=== PATIENT | female | born 1950 | race Caucasian/White ===

== ENCOUNTER → 2016-07-14 | Outpatient (CLI) | payer MEDICARE ==
[~2016-07-14] MED LIST: 1-ME1LIQ PO; AMLO10TA2 PO; BENA20 PO; BENA20TA PO; COLA100C3 PO; ESTR42.5V VAGINAL; FERR1TAB7 PO; FERR65TA PO; METO50CR PO; METO50TA11 PO; PROP50TA2; PROP50TA2 PO
[2016-07-14 12:19] LABS: AUTOMATED NEUTROPHIL # 4.5 TH/MM3 (1.8-7.7); BASOPHIL % 0.6 % (0.0-2.0); EOSINOPHIL # 0.1 TH/MM3 (0-0.4); EOSINOPHIL % 1.2 % (0.0-4.0); HEMATOCRIT 44.6 % (35.0-46.0); HEMO FLAGS DIFF FINAL; LYMPHOCYTE # 1.4 TH/MM3 (1.0-4.8); MEAN CELL VOLUME 88.7 FL (80.0-100.0); MEAN CORPUSCULAR HEMOGLOBIN 29.8 PG (27.0-34.0); MEAN CORPUSCULAR HGB CONC 33.6 % (32.0-36.0); MONO % 8.2 % (0.0-8.0); PLATELET COUNT 228 TH/MM3 (150-450); RED BLOOD COUNT 5.03 MIL/MM3 (4.00-5.30); RED CELL DISTRIBUTION WIDTH 13.8 % (11.6-17.2); WHITE BLOOD COUNT 6.6 TH/MM3 (4.0-11.0)
[2016-07-14 13:05] LABS: ALKALINE PHOSPHATASE 92 U/L (45-117); ALT (GPT) 31 U/L (10-53); ANION GAP 5 MEQ/L (5-15); AST (GOT) 22 U/L (15-37); BICARBONATE 31.6 MEQ/L (21.0-32.0); BLOOD UREA NITROGEN 23 MG/DL (7-18); CHLORIDE 105 MEQ/L (98-107); GLOMERULAR FILTRATION RATE 76 ML/MIN (>89); GLUCOSE,FASTING 95 MG/DL (74-99); POTASSIUM 4.6 MEQ/L (3.5-5.1); SODIUM (NA) 142 MEQ/L (136-145); TOTAL BILIRUBIN ADULT 0.3 MG/DL (0.2-1.0)
[2016-07-14 14:21] LABS: BLOOD, URINE NEG (NEG); GLUCOSE,URINE NEG (NEG); KETONE, URINE NEG (NEG); MUCUS URINE FEW /lpf (OCC); NITRITE,URINE NEG (NEG); PH, URINE 6.5 (5.0-8.5); SQUAMOUS EPITHELIAL CELL URINE 2 /hpf (0-5); URINE COLOR YELLOW (YELLW/STRAW)
[2016-07-14 14:24] LABS: COMMENT (UR) CULT NOT INDICATED; CULTURE IF INDICATED CULT NOT INDICATED
--- NOTE | 2016-07-15 22:50 | EKG ---
Date Performed: 07/14/2016 Time Performed: 11:41:11 PTAGE: 65 years EKG: SINUS TACHYCARDIA LOW QRS VOLTAGE IN PRECORDIAL LEADS NONSPECIFIC T-WAVE ABNORMALITY ABNORM AL RHYTHM ECG NO PREVIOUS TRACING DOCTOR: Dioni Beatty Interpretating Date/Time 07/15/2016 22:46:39
== END ==
LOC: CPRE 11:13
PROVIDERS: ATTEND Obstetrics & Gynecology Gynecology
DX: Z01.810 Encounter for preprocedural cardiovascular examination (principal); Z01.812 Encounter for preprocedural laboratory examination; N81.4 Uterovaginal prolapse, unspecified; R00.0 Tachycardia, unspecified
CPT/HCPCS: 36415; 80053; 81001; 85025; 93005

== ENCOUNTER → 2016-07-22 | Day surgery (SDC) | payer MEDICARE ==
--- NOTE | 2016-07-14 15:11 | MH ---
cc: ZEFERINO JEFFERSON MD DATE OF ADMISSION: 07/22/2016 DATE OF : 1950 REASON FOR ADMISSION Uterovaginal suspension. HISTORY OF PRESENT ILLNESS The patient is a 65-year-old white female, 4, para 3, who has had issues with pelvic organ prolapse. On exam she has a stage III uterovaginal prolapse. She wants to proceed with uterovaginal suspension. PAST MEDICAL HISTORY 1. Hyperthyroidism. 2. Hypertension. MEDICATIONS 1. PTU 50 mg q. daily. 2. Lotensin 20 mg q. daily. 3. Amlodipine 10 mg q. Daily. 4. Metoprolol 50 mg q. daily. ALLERGIES None. PAST SURGICAL HISTORY 1. Appendectomy. 2. Colon resection after perforation. SOCIAL HISTORY [id number] smoking history, quit 15 years ago. [employer] HISTORY No STDs or abnormal Pap smears. Menopause at least 10 years ago. OB HISTORY Three vaginal deliveries, largest baby 7 pounds. FAMILY HISTORY Noncontributory. ALLERGIES None. REVIEW OF SYSTEMS As above. Pelvic prolapse symptoms, mainly pressure, discomfort, aching. Also some issues with initiation of urinary flow. The remainder of a 14-point review is negative. PHYSICAL EXAMINATION VITAL SIGNS: She is afebrile. Vital signs stable. Blood pressure 150/90. Height 5.4, weight 135, BMI 23. GENERAL: Patient is alert and oriented in no acute distress. MENTAL STATUS: No sign of cognitive dysfunction or depression. HEENT: Within normal limits. NECK: Supple. No JVD. CHEST: Clear. HEART: Regular rate and rhythm. ABDOMEN: Soft, nontender. No hepatosplenomegaly. BACK: No CVA tenderness. PELVIC: Exam will be detailed under anesthesia. In the office we note a POP-Q score of Aa is -1; Ap is -1; point C is +2; genital hiatus is 5; perineal body is 5; total vaginal length is 10. Levator muscles are 1/5. Sacral nerve reflexes are diminished. No postvoid residual. EXTREMITIES: Normal. SKIN: Without rashes. NEUROLOGIC: Nonfocal. No DVT signs. IMAGING Ultrasound in April 2016 shows a normal uterus, 5 x 4 x 2.5 cm. Endometrial stripe is 3 mm. Ovaries are not well-visualized but appear to be small. ASSESSMENT/PLAN Patient with symptomatic uterovaginal prolapse. Patient has been apprised of the options for management and treatment including pessary, vaginal hysterectomy, uterine support from a vaginal or abdominal approach. In light of the patient's history of bowel surgery after perforation, I think maintaining the uterus seems a reasonable course. The ultrasound confirms normal endometrial stripe and no significant pelvic pathology is identified nor suspected. The patient declines the use of pessary and wants to proceed with uterine preservation techniques. At this point we will use DVT prophylaxis with sequential compression device, Ancef one gram for antibiotic prophylaxis. We will use a sacrospinous hysteropexy technique either right-sided or bilateral using permanent suture. The patient is aware that there will be no mesh used in this procedure. The patient, her and I discussed at length the options for management and treatment. There were issues regarding failure rate may be as high as 10-15% as well as issues with dyspareunia and postoperative urinary incontinence. Also, the issues regarding pelvic pain, bleeding, infection, fistula formation, damage to bladder and bowel were discussed. The patient has made an informed choice to proceed. At this point anticipate outpatient procedure and she will have standard preoperative labs and EKG done prior. MD ASHLY Parker/LORI /2:32 PM /2:54 PM
[~2016-07-22] VITALS: Ht 162.6 cm; Wt 67.9 kg
[~2016-07-22] MED LIST changes: -1-ME1LIQ PO; -BENA20 PO; +DEXAMETHASONE SOD PHOS 4 MG/ML VIAL ONE; +DO NOT ADM ANY ANTICOAGULANT DRUGS XX PRN; +ESTROGENS CONJUGATED VAG CREA 15 APPL/30 GM TUBE ONE; +FAMOTIDINE 20 MG/2 ML VIAL ONE; -FERR1TAB7 PO; +FUROSEMIDE 40 MG/4 ML VIAL ONE; +INSULIN HUMAN REGULAR 1,000 UNITS/10 ML VIAL SQ PRN; +KETOROLAC TROMETHAMINE 10 MG TAB PO PRN; +KETOROLAC TROMETHAMINE 30 MG/ML (IVP) VIAL IV PUSH PRN; +KETOROLAC TROMETHAMINE 60 MG/2 ML (IM) VIAL IM ONE; +LACTATED RINGER'S 1000 ML INJ 1,000 ML IV ONE; +LACTATED RINGER'S 1000 ML IV SCH; +LIDOCAINE 1%/EPINEPHrine 1:100,000 SOLN 20 ML VIAL ONE; +METHYLENE BLUE 10 MG/ML VIAL ONE; -METO50CR PO; +METOPROLOL TARTRATE 25 MG TAB PO PRN; +MIDAZOLAM HCL 2 MG/2 ML VIAL ONE; +ONDANSETRON HCL 4 MG/2 ML VIAL IV PUSH ONE; +ONDANSETRON HCL 4 MG/2 ML VIAL IV PUSH PRN; +PHENYLEPHRINE HCL 10 MG/ML VIAL IV ONE; -PROP50TA2; +PROPOFOL 200 MG/20 ML AMP IV ONE; +SODIUM CHLORID 0.9% 500 ML IV SCH; +ceFAZolin 1,000 MG/NS 100 ML IV SCH; +ePHEDrine/NS 50 MG/5 ML SYR IV ONE; +fentaNYL CITRATE 250 MCG/5 ML AMP ONE
[2016-07-22 06:54] VITALS: BP 159/70; PULSE 61; RESP 16; TEMP 97.9; O2SAT 99
[2016-07-22 12:25] VITALS: BP 130/72; PULSE 68; RESP 16; TEMP 97.3; O2SAT 96
--- NOTE | 2016-07-27 13:06 | MP ---
cc: ZEFERINO JEFFERSON MD DATE OF SURGERY: 07/22/2016 PREOPERATIVE DIAGNOSIS Uterovaginal prolapse. POSTOPERATIVE DIAGNOSIS Uterovaginal prolapse. PROCEDURE 1. Sacrospinous ligament hysteropexy. 2. Posterior repair with enterocele. 3. Perineorrhaphy. SURGEON Dr. Jefferson ANESTHESIA General endotracheal. [employer]CH[employer]IC[employer] x2. FLUIDS 2000 cc crystalloid. ESTIMATED BLOOD LOSS 50 cc. URINE OUTPUT 500 cc. FINDINGS External genitalia poorly estrogenized. POP-Q score: Aa is 0; Ap is +1; point C is +2; total vaginal length is 10; genital hiatus is 6; perineal body is 4. Following repair Aa is -2; Ap is -3; point C is -8; total vaginal length is 10; genital hiatus is 6; perineal body is 5. Rectal exam was normal following repair with no sign of compromise of the rectum. No evidence of suture bridge on the right side. SPECIMENS None. COMPLICATIONS None. DISPOSITION Recovery room stable. COUNTS Needle and sponge count correct. DRAINS Vaughan catheter. PROPHYLAXIS DVT prophylaxis: Sequential compression device. Antibiotic prophylaxis: Ancef one gram. Timeout procedure per protocol. SUMMARY OF INDICATION FOR PROCEDURE Patient with symptomatic uterovaginal prolapse. The patient had history of colonic resection and decision was made to try to maintain the uterus and support it rather than remove it. The patient had failed pessary use and wanted to proceed with support and reconstructive surgery. DETAILS OF PROCEDURE The patient was taken to the operating theatre, identified, prepped and draped in a fashion appropriate for planned procedure. She was in the dorsal lithotomy position with careful attention paid to placement of legs in the stirrups to avoid undue stress to sensitive neurovascular structures. Above findings noted. Neurovascular integrity documented. A Vaughan catheter was placed, bladder drained of 500 cc of urine. Methylene blue saline solution was instilled into the bladder. A modified a pudendal block was performed with epinephrine and lidocaine solution. The vaginal mucosa was infiltrated with epinephrine and lidocaine solution. A midline incision was made from the perineal body to the cervix. We were able to identify the cervical stroma without difficulty. The rectum was reflected. We had one finger in the rectum to provide traction and countertraction and to assure that there was no damage to the rectum. A posterior repair was performed in the standard fashion with delayed absorbable suture, and enterocele repair performed with delayed absorbable suture as well. The perirectal space on the right side was entered. The ischial spine was identified. The sacrospinous ligament was identified. We used retractors to move the rectum medially and we were able to easily identify the ligament. We placed a Prolene suture with a Capio device through the sacrospinous ligament. We were hoping to get another suture medial to that but we did not have enough space to do that safely, so we only used one suture. The Prolene suture was attached to the cervical stroma. This was identified by placing a small dilator within the cervical os. The vaginal mucosa was trimmed. The vaginal mucosa was closed approximately senior living down the vaginal vault. We then cinched down the suspension suture and this elevated the cervix nicely to a point C of -8. Hemostatic matrix was used for hemostasis. The remainder of the vaginal cuff was closed after trimming a small amount, approximately 1 cm, on each side. At the conclusion of the case the rectal exam was repeated and confirmed the above findings. The suture line was intact and hemostatic. The cervix was well-elevated. The patient was reversed from anesthesia and taken to the recovery room in stable condition. MD ASHLY Parker/LORI /9:46 AM /12:48 PM
== END | disposition home or self-care (01) ==
LOC: HSDC 05:52 → EDUNIT# 08:00
PROVIDERS: ATTEND Obstetrics & Gynecology Gynecology
DX: N81.4 Uterovaginal prolapse, unspecified (principal)
CPT/HCPCS: 00942; 57265; 57282; J0690; J1100; J1885; J2250; J2370; J2405; J3010; J7120; J1940